=== PATIENT | female | born 1955 | race African-American/Black ===

== ENCOUNTER 2017-03-27 07:29 | Inpatient (IN) | payer MEDICARE, OTHER, SELFPAY ==
[2017-03-21 10:15] LABS: BASOPHILS 0.1 %; BASOPHILS ABSOLUTE 0.01 10/3/uL (0.0-0.16); EOSINOPHILS 0.8 %; EOSINOPHILS ABSOLUTE 0.07 10/3/uL (0.0-0.53); HEMATOCRIT 41.4 % (36.0-48.0); HEMOGLOBIN 13.8 g/dL (12.0-16.0); IMMATURE GRANULOCYTES 0.1 %; IMMATURE GRANULOCYTES ABSOLUTE 0.01 10/3/uL (0.0-0.11); LYMPHOCYTES 23.4 %; MEAN CORPUS HGB CONC 33.3 g/dL (32.0-36.0); MEAN CORPUSCULAR HEMOGLOB 30.7 pg (26.0-34.0); MEAN CORPUSCULAR VOLUME 92.2 fL (80-100); MONOCYTES 4.9 %; MONOCYTES ABSOLUTE 0.44 10/3/uL (0.21-1.20); NEUTROPHILS 70.7 %; NEUTROPHILS ABSOLUTE 6.34 10/3/uL (2.02-8.40); PLATELET COUNT 256 10/3/uL (150-400); RBC DISTRIBUTION WIDTH 13.4 % (12.0-16.0); RED CELL COUNT 4.49 10/6/uL (4.0-5.6)
[2017-03-21 10:16] LABS: MANUAL DIFF NO %
[2017-03-21 10:22] LABS: INTERNATIONAL NORMAL RATI 1.1 UNITS (-)
[2017-03-21 10:31] LABS: A/G RATIO 1.1 (0.7-1.9); ALBUMIN 3.7 G/DL (3.5-5.0); CALCIUM, SERUM 9.3 MG/DL (8.5-10.4); CHLORIDE, SERUM 108 MMOL/L (96-112); CO2 (CARBON DIOXIDE) 30 MMOL/L (24-34); CREATININE 1.88 MG/DL (0.55-1.02); GFR AFRICAN AMERICAN 33 ML/MIN (>=60); GFR NON AFRICAN AMERICAN 28 ML/MIN (>=60); GLOBULIN 3.5 G/DL (2.5-4.1); POTASSIUM, SERUM 4.3 MMOL/L (3.5-5.3); SGOT(AST) 14 U/L (5-40); SGPT(ALT) 25 U/L (5-65); SODIUM, SERUM 144 MMOL/L (135-148); TOTAL BILIRUBIN 0.8 MG/DL (0-1.2); TOTAL PROTEIN 7.2 G/DL (6.0-8.5)
[2017-03-21 10:32] LABS: ALKALINE PHOSPHATASE 164 U/L (45-117); BUN (BLOOD UREA NITROGEN) 19 MG/DL (6-23); GLUCOSE, SERUM 106 MG/DL (60-99)
[2017-03-21 13:14] LABS: ASCORBIC ACID (UR NOT ORDER) NEG (NEG); BILIRUBIN, URINE NEGATIVE (NEG); KETONE, URINE NEGATIVE (NEG); LEUKOCYTE ESTERASE(NOT OR NEG (NEG); WBC (NOT ORDERED) (RFLEX) 1 (0-5)
--- NOTE | ~2017-03-27 | OP ---
Record Of Operation [facility] [address] [place]. [address] NAME: ANG JERONIMO : 55 STATUS : ADM IN [facility]#: [id number] AGE: 61 ADM/REG DATE : 03/27/17 MR#: [id number] REPORT SERV DATE: 03/28/17 DICTATED BY: CORONA GRECO DATE: 03/28/17 REPORT STATUS : Draft TRANSCRIBED BY: MODPaula DATE: 03/28/17 DATE OF PROCEDURE: 03/27/2017 PREOPERATIVE DIAGNOSIS: Severe right knee degenerative joint disease. POSTOPERATIVE DIAGNOSIS: Severe right knee degenerative joint disease. OPERATION: Right posterior stabilized total knee replacement, cemented. SIDE: Right. SIZE: See chart. ANESTHESIA: See chart. ESTIMATED BLOOD LOSS: About 10 mL. TOURNIQUET TIME: Approximately 1 hour and 10 minutes. COMPLICATIONS: None. SPECIMENS: Articular surfaces. PROCEDURE: The patient was appropriately identified and marked. The operative side agreed with the consent form and it was checked by all members of the surgical team. The patient was taken to the operating room and anesthesia was induced per the anesthesiologist. The patient was carefully transferred to the operating table without incident. The patient received appropriate prophylactic antibiotics and a Hoffmann catheter was placed in the standard sterile technique. The patient was then carefully positioned, padded, prepped and draped in the normal sterile fashion. The operative leg had been appropriately identified and checked by all members of the operating team against the consent form and found to be the correct limb. The patient's lower extremity was then exsanguinated with an Dashawn wrap and a tourniquet was inflated to 350 mm/Hg. Sharp dissection was carried out through a straight midline longitudinal incision and electrocautery through the fat. Sharp quad splitting approach was carried out between about the medial 10 percent of the tendon and the lateral 90 percent of the tendon and down around the medial aspect of the patella and then 1 cm medial to the tibial tubercle. The patella was carefully everted and the posterior fat pad was excised and gentle MCL elevation was carried out off the proximal medial tibia subperiosteally. IM guide was placed in the distal femur after using the appropriate drill. The distal femoral cutting guide was held with 2 pins and the distal cut made. Meniscal fragments and the ACL and the PCL were excised with electrocautery, carefully staying anterior to the posterior fat pad. The proximal tibial alignment guide was set appropriately and the proximal tibial cut made. Spacer block verified full extension with excellent mediolateral balance. Sizing guide was used to place 2 drill holes in the distal femur and the four-in-one cutting block was then placed, impacted and checked Record Of Operation [facility] [id number] [place]. [address] NAME: ANG JERONIMO : 55 STATUS : ADM IN PAT#: [id number] AGE: 61 ADM/REG DATE : 03/27/17 MR#: [id number] REPORT SERV DATE: 03/28/17 DICTATED BY: CORONA GRECO DATE: 03/28/17 REPORT STATUS : Draft TRANSCRIBED BY: JUJU DATE: 03/28/17 to be sure it would not notch with an alicia wing and it was held with 2 pins. The anterior cut, posterior cut, anterior chamfer and posterior chamfer cuts were made. The pins were removed and the block was removed. A posterior release was carried out with a curved 3/4 inch osteotome staying right on the bone posteriorly. The box-cut guide was then placed, impacted and held with 2 pins and a reciprocating saw was used to cut out the box. With the trial components in place, there was excellent medial/lateral balance. The patella was then measured with a caliper, cut first with an oscillating saw and then reamed with a patella reamer. With the trial patella in place, there was excellent patellar tracking. Rotation was marked on the tibia and the tibia prepared with a drill and stamp chisel. All surfaces were then copiously irrigated with pulsatile lavage, carefully dried and then vacuum-mixed cement was pressurized with a cement gun in a doughy phase. The tibial component was placed, impacted and excess cement was removed. The cement was then pressurized in the femur and placed on the posterior runners of the femoral component, which was placed, impacted and excess cement removed and the knee was brought out into extension on a trial spacer. The cement was then pressurized in the patella. Patellar component was then placed, clamped and excess cement was removed. Once all cement was hardened, the knee was taken through range of motion. Further extruded cement was removed with a small osteotome. Then based on the trial inserts, we decided on the actual insert, which was placed in the standard fashion and held with a locking mechanism. The knee was then copiously irrigated and then closed in a layered fashion over a medium Hemovac drain superolaterally with interrupted #1 in the deep fascia, 2-0 subcutaneous and polly in the skin. The wounds were dressed sterilely and the tourniquet was deflated. The patient was then awakened and taken to the postanesthesia care unit without incident. All counts were correct at the end of the case. WTB/JUJU Anam Greco M.D. / [id number] CC: Anam Greco M.D.
--- NOTE | ~2017-03-27 | DS ---
Discharge Summary [facility] [id number] [place]. [address] NAME: ANG JERONIMO : 55 STATUS : DIS IN PAT#: [id number] AGE: 61 ADM/REG DATE : 03/27/17 MR#: [id number] REPORT SERV DATE: 04/18/17 DICTATED BY: CORONA GRECO DATE: 04/17/17 REPORT STATUS : Draft TRANSCRIBED BY: MODPaula DATE: 04/17/17 Data Collection from hospitalization DISCHARGE DIAGNOSES: 1. Severe right knee degenerative joint disease. 2. Diabetes. 3. Hypertension. 4. Depression. 5. Neuropathy. 6. Hypercholesterolemia. 7. Chronic kidney disease. 8. Hypothyroidism. 9. Osteoarthritis. CONSULTATIONS: 1. Nato Dill DO. 2. Vincenzo Burr MD. PROCEDURES PERFORMED: 1. Right posterior stabilized total knee replacement, cemented, 03/27/2017. 2. Carotid blood flow study on 03/28/2017. 3. CT scan of the brain without contrast on 03/28/2017. 4. MRI of the brain without contrast on 03/28/2017. 5. MRI of the brain without contrast on 04/01/2017. PATHOLOGY: Bone and joint, right knee, total knee - degenerative changes. Bone marrow - fatty without hematopoiesis, synovial hyperplasia with neovascularization (no crystals). MEDICATIONS: Aspirin 81 mg daily, Lipitor 80 mg at bedtime, Cardizem CD 300 mg every morning, Colace 100 mg twice a day, Pepcid 20 mg at bedtime, ferrous sulfate 300 mg with breakfast and supper, Neurontin 300 mg three times a day, Lantus 33 units subcutaneously every morning as instructed and 30 units subcutaneously at bedtime, levothyroxine 50 mcg daily, Theragran tablets one tablet with breakfast, Coumadin as instructed, Geodon 60 mg twice a day, Levemir 33 units subcutaneously daily and 30 units subcutaneously at bedtime, Tylenol 650 mg every four hours as needed, Mylanta 30 mL as needed, Dulcolax 15 mg as needed, milk of magnesia 30 mL as needed, Zofran 4 mg every four hours as needed, Percocet 5/325 one to two tablets every four hours as needed, MiraLAX powder one packet twice a day as needed, Tradjenta 5 mg before breakfast, Cozaar 100 mg every morning, Klor-Con 20 mEq twice a day, and Lasix 40 mg twice a day. CONDITION AT DISCHARGE: Stable. DISPOSITION: The patient was discharged to [facility] on an 1800-calorie diabetic diet with activities as instructed. HOSPITAL COURSE: This is a 61-year-old female who had severe right knee degenerative joint disease. Treatment options were discussed and it was elected to proceed with surgical intervention. She was admitted to the hospital at this time for further evaluation and Discharge Summary [address] [address] NAME: ANG JERONIMO : 55 STATUS : DIS IN PAT#: [id number] AGE: 61 ADM/REG DATE : 03/27/17 MR#: [id number] REPORT SERV DATE: 04/18/17 DICTATED BY: CORONA GRECO DATE: 04/17/17 REPORT STATUS : Draft TRANSCRIBED BY: JUJU DATE: 04/17/17 treatment. Upon admission, she was taken to the operating room where she underwent the above-mentioned procedure. She tolerated this well, and there were no complications. On postop day #1, she developed a new onset of left hemiparesis. She definitely had some left-sided weakness and left facial droop. She was able to talk, but stuttered and repeated herself. Stroke code was initiated. A carotid blood flow study was performed as well as a CT scan of the brain without contrast and an MRI of the brain without contrast. Losartan was held. She was evaluated by Occupational Therapy. She was seen by Dr. Vincenzo Burr regarding possible acute stroke. CT scan of the brain had demonstrated no clear abnormality. After the CT scan, the patient was placed in the CCU. Prior to tPA administration, the patient became more obtunded and had more difficulty following commands with more dysarthria. There was persistent left hemipareses during the evaluation and the patient's left arm seemed to be mildly worse compared to prior to CCU arrival. The patient denies any previous stroke in the past. A CTA had not been obtained secondary to the patient's creatinine of 2.1. We were going to check a fasting lipid panel and hemoglobin A1c. Lipitor was going to be given at bedtime. Coumadin was held. IV labetalol was going to be given as needed for systolic blood pressure greater than 185 mmHg. The patient was also seen by Dr. Nato Dill. The patient had received tPA and had been transported to the ICU. She had developed some respiratory distress and was placed on 4 liters/minute of oxygen. The patient denies any underlying history of lung disease. She is not on any inhalers or oxygen. She is a lifelong nonsmoker. After the tPA was given, she did have some bleeding into her right knee area from where the surgery was done. Compression was being provided. There was a small amount of bright red blood in her sputum. She felt like her breathing was doing well now. She did not have any chest pain or wheezing. She was going to be monitored in the ICU. TSH was going to be checked. Toradol was stopped. Potassium was also discontinued as well as Lasix and alogliptin. Glucose checks would be performed. She had already been started on Levemir subcu, sliding scale insulin level 3 was also started. We were going to check hemoglobin A1c and check her chest x-ray. Echocardiogram was performed. On 03/29/2017, she reported that her symptoms were improving. Her T-max was 98.5. Aspirin had been started. Coumadin was going to be resumed. Losartan was stopped as well as IV fluids. She was evaluated by Physical Therapy. She was transfused one unit of packed red blood cells. Speech-Language pathology performed a bedside swallow study. There were no overt signs or symptoms of aspiration. Aspiration precautions were in place. On 03/30/2017, she was up sitting in a bedside chair. Her left-sided weakness had improved. She was doing well. ARNEL hose were in place. Sliding scale insulin level 3 was continued as well as Levemir. We encouraged oral fluids. Lipitor and Synthroid were continued. She was transferred to telemetry. INR level was 1.2. Her left hemiparesis resolved. She continued to do well. Creatinine level was 1.86. On 04/01/2017, the left hemithorax had almost completely resolved. There was still a little weakness in the left arm and leg. She was transfused one unit of packed red blood cells. Blood sugars were stable. Creatinine was 1.57. Her carotid ultrasound had been normal. Her echocardiogram had shown left ventricular ejection fraction of 70%. She was felt to have had an acute stroke. Discharge planning was performed. She continued to progress. MRI of the brain without contrast was performed. There were no acute changes seen. On 04/03/2017, she was up sitting in a chair. She was alert and cooperative. She had normal distal pulses. Creatinine level was 1.58. Discharge Summary [address] [address] NAME: ANG JERONIMO : 55 STATUS : DIS IN PAT#: [id number] AGE: 61 ADM/REG DATE : 03/27/17 MR#: [id number] REPORT SERV DATE: 04/18/17 DICTATED BY: CORONA GRECO DATE: 04/17/17 REPORT STATUS : Draft TRANSCRIBED BY: MODL DATE: 04/17/17 Discharge instructions were given. Due to her improved and stable condition, she was discharged to [facility] with the above-stated instructions. Information collected by: Tonia Worthy I submit the above information as my discharge summary. TG/JUJU Anam Greco M.D. / [id number] CC: Riya Millard M.D. [facility]
--- NOTE | ~2017-03-27 | CN ---
Consultation Report [facility] [address] [place]. [address] NAME: ANG JERONIMO : 55 STATUS : ADM IN [facility]#: [id number] AGE: 61 ADM/REG DATE : 03/27/17 MR#: [id number] REPORT SERV DATE: 03/28/17 DICTATED BY: NATO DILL DATE: 03/28/17 REPORT STATUS : Draft TRANSCRIBED BY: MODL DATE: 03/28/17 CONSULT DATE OF CONSULTATION: A 61-year-old female, admitted to the hospital by Dr. Riley with Orthopedics. He performed a right total knee replacement on 03/27/2017. The patient had minimal blood loss from surgery. Postoperative day #1, she started having some left-sided weakness that included a left arm and leg as well as some left facial weakness. Noncontrast CT scan of the head did not show any blood. She was evaluated by Neurology and was found to have an acute CVA. The patient was given tPA and transported to the ICU. The patient did get into some respiratory distress and had to be placed on 4 L/minute of oxygen and we were consulted. The patient denies any history of underlying lung disease. She is not on any inhalers or oxygen. She is a lifelong nonsmoker. After the tPA was given, she did have some bleeding into her right knee area from where the surgery was done. Orthopedics was notified and they are just doing compression at this point. She has a little bit of scant bright red blood in her sputum. Otherwise she states her breathing is doing well now. She does not have any chest pain or wheezing. No fever. REVIEW OF SYSTEMS: No headache, seizure, or syncope. She states that some of her left arm and leg strength is starting to come back some. She does have significant arthritis. PAST MEDICAL HISTORY: Osteoarthritis, hypertension, hypothyroidism, and insulin-dependent diabetes. SURGICAL HISTORY: Hernia repair, hysterectomy, left total knee arthroplasty, April of 2016, and right knee arthroscopy. FAMILY HISTORY: Brother diabetes and hypertension, sister diabetes, father heart disease and hypertension. SOCIAL HISTORY: . Does have children. Never smoker. No alcohol. ALLERGIES: HYDROCODONE. HOME MEDICATIONS: Reviewed. PHYSICAL EXAMINATION: VITAL SIGNS: Per nursing flow sheet. GENERAL: No acute distress. Alert. HEENT: Normocephalic and atraumatic. Pupils are equal, round, and reactive to light. NECK: Trachea midline. HEART: Regular rate and rhythm. No murmurs. LUNGS: Clear to auscultation bilaterally. No wheezes, rales, or rubs. GI: Soft, nontender, nondistended. Obese abdomen. MUSCULOSKELETAL: Right knee is Consultation Report [address] [place]. [address] NAME: ANG JERONIMO : 55 STATUS : ADM IN [facility]#: [id number] AGE: 61 ADM/REG DATE : 03/27/17 MR#: [id number] REPORT SERV DATE: 03/28/17 DICTATED BY: NATO DILL DATE: 03/28/17 REPORT STATUS : Draft TRANSCRIBED BY: JUJU DATE: 03/28/17 wrapped, has a postsurgical dressing. There is some blood oozing through the gauze. EXTREMITIES: No obvious cyanosis or clubbing. NEUROLOGIC: GCS 15. LABORATORY AND DIAGNOSTIC DATA: Labs and radiology studies reviewed. ASSESSMENT AND PLAN: 1. Respiratory distress-resolving. 2. Acute CVA-left hemiparesis. 3. Insulin-dependent diabetes with hyperglycemia. 4. Status post postop day #1 right total knee replacement. 5. Acute blood loss anemia. 6. Scant hemoptysis. 7. Acute on chronic kidney disease. PLAN: ICU monitoring. Post tPA for stroke. Neurology is already following the patient with their orders in place. TSH is pending given her history of hypothyroidism. Neurology stopped Toradol given her kidney history. Also stopped her potassium, Lasix, and alogliptin. We will also get glucose checks. She is already on her Levemir subcu and we will add a level 3 sliding scale. Check A1c. Check chest x-ray. CEP/MODL Nato Dill DO / [id number] CC: Anam Riley M.D.
--- NOTE | ~2017-03-27 | CN ---
Consultation Report [facility] [address] [place]. [address] NAME: ANG JERONIMO : 55 STATUS : ADM IN PAT#: [id number] AGE: 61 ADM/REG DATE : 03/27/17 MR#: [id number] REPORT SERV DATE: 03/28/17 DICTATED BY: DATE: REPORT STATUS : Draft TRANSCRIBED BY: MODL DATE: 03/28/17 NEUROLOGY CONSULTATION DATE OF CONSULTATION: 03/28/2017 REASON FOR CONSULT: Possible acute stroke. HISTORY OF PRESENT ILLNESS: This is a 61-year-old female who presented to [facility] on 03/27/2017, for right knee surgery. The patient, after surgery, was doing well until 08:45 when the patient was trying to move left the left arm up and was noted to have left upper extremity weakness. The patient was not evaluated by the nurse practitioner for orthopedic service and was confirmed to have left hemiparesis and was called a stroke code. CT scan of the brain otherwise demonstrated no clear abnormality. After CT scan upon arrival to CCU prior to tPA administration, the patient was noted to have become more obtunded and have more difficulty following commands with more dysarthria. The patient was noted to have persistent left hemiparesis during the evaluation with the patient's left arm appeared to be mildly worse compared to prior to CCU arrival. The patient's initial NIH Stroke Scale was 8. The patient denies previous stroke in the past. The patient, prior to the hospitalization, was not noted to have any recent illness, fever, chill, nausea, or vomiting. TPA was authorized by orthopedic nurse practitioner at the time of evaluation. PAST MEDICAL HISTORY: The patient's past medical history consists of chronic kidney disease as well as history of hypertension and diabetes. SOCIAL HISTORY: Denies tobacco, alcohol, or recreational drug usage. FAMILY HISTORY: Significant for hypertension. REVIEW OF SYSTEMS: At the time of evaluation, review of systems otherwise negative except for those mentioned in the HPI. The patient was noted to have hospital medication, the patient received a dose of Coumadin on 03/27/2017; has not received today's dose of Coumadin. The patient's hospital medications otherwise consist of Cardizem; Colace; Cozaar; ferrous sulfate; Geodon; Lasix; Levemir; Neurontin; NovoLog; Pepcid; potassium; Synthroid; multivitamin; Toradol as well as alogliptin. The patient has also received morphine 2 mg on 03/27/2017, at 1642 hours as well as Percocet on 03/28/2017 at 7 a.m. PHYSICAL EXAMINATION: VITAL SIGNS: At the time of evaluation, the patient was noted to have vital signs with T- max of 98.7, heart rate of 66 to 101, respirations of 13 to 25, and blood pressure of 126 to 162 over 55 to 78. GENERAL: The patient is well developed, well nourished, in no acute distress. Consultation Report [place] [id number] [facility] [place]. [address] NAME: ANG JERONIMO : 55 STATUS : ADM IN [facility]#: [id number] AGE: 61 ADM/REG DATE : 03/27/17 MR#: [id number] REPORT SERV DATE: 03/28/17 DICTATED BY: DATE: REPORT STATUS : Draft TRANSCRIBED BY: MODL DATE: 03/28/17 CARDIOVASCULAR EXAMINATION: Regular rate and rhythm. No carotid bruits were otherwise auscultated. PULMONARY: Examination was clear to auscultation bilaterally. NEUROLOGICAL EXAMINATION: Generally, the patient is alert and oriented to person, place, possible year as well as month. The patient was noted to have dysarthria at the time of evaluation, is able to follow most of the simple and 2-step commands at the time of evaluation. The patient, later, became more obtunded but still arousable. Otherwise, the patient was noted to have mild aphasia at the time of evaluation as well. Cranial nerves 2 through 12. Pupils equal, round, and reactive to light. Initially was noted to have intact horizontal eye movement and subsequently was noted to have difficulties to move the eye towards the left. Intact [id number] response bilaterally. Decreased nasolabial fold as well as right lower facial weakness. Midline tongue. Normal palatal movement. Reports decreased sensation in the left cranial nerve V1, V2, and V3 distribution. The patient was noted to have some decreased hearing in bilateral ears with the patient noted to have initial 5/5 right upper extremity strength. Right lower extremity strength was difficult to evaluate secondary to recent right knee surgery as well as pain with the patient reports symmetrical sensation in bilateral lower extremity. The patient was noted to have 1/5 trace movement in the left lower extremity as well as left upper extremity forearm able to move against gravity. Otherwise, reports decreased sensation in the left upper extremity. At the time of evaluation, no clear ataxia was noted. The patient does demonstrate 2+ reflexes throughout. Gait was not evaluated secondary to weakness as well as recent knee surgery. LABORATORY STUDIES: At the time of evaluation demonstrated hemoglobin of 10.1, hematocrit of 30.8, and the patient was noted to have INR of 1.2. Sodium of 139, potassium 4.6, chloride 104, bicarb 28, BUN of 20, creatinine of 2.10, glucose of 202, and calcium of 7.7. CT scan of the brain demonstrated no acute process. CTA was not obtained secondary to the patient's creatinine of 2.1. IMPRESSION: Left hemiparesis. Time of onset was 08:45 noted with more obtundation upon arrival to the CCU prior to tPA administration in addition to the patient's persistent left hemiparesis and dysarthria. Initial NIH stroke scale was 8. TPA was administered at 0955 hours. We will check MRI of the brain without contrast for evaluation. We will obtain stroke workup as well as laboratory study. RECOMMENDATIONS: 1. Status post tPA at 0955 hours. 2. MRI of the brain without contrast. 3. Echocardiogram. 4. Carotid Doppler study. 5. Fasting lipid panel and hemoglobin A1c. 6. Lipitor 80 mg p.o. at bedtime. 7. Hold Coumadin. 8. Labetalol 10 mg IV q.4 to 6 hours as needed p.r.n. for systolic blood pressure greater than 185 mmHg. 9. PT/OT speech therapy to evaluate and treat. Consultation Report [place] [address] [place]. [address] NAME: ANG JERONIMO : 55 STATUS : ADM IN [facility]#: [id number] AGE: 61 ADM/REG DATE : 03/27/17 MR#: [id number] REPORT SERV DATE: 03/28/17 DICTATED BY: DATE: REPORT STATUS : Draft TRANSCRIBED BY: JUJU DATE: 03/28/17 [facility]/JUJU Vincenzo Burr MD / [id number] CC: Anam Riley M.D.
[~2017-03-27 07:29] MED LIST: AT25 PO; C5; CARDCD300 PO; COZAAR100 MG PO; ESTRACE1 MG PO; GEODON60 MG PO; HUMALOGPEN SC; KLOR-CON20 MEQ PO; L40 PO; LANTUSCART SC; LEVOTHYROXIN50 MCG PO; NEUR300 PO; PCET PO; TRADJENTA5 MG PO
[2017-03-28 04:55] LABS: HEMATOCRIT 30.8 % (36.0-48.0); HEMOGLOBIN 10.1 g/dL (12.0-16.0); INTERNATIONAL NORMAL RATI 1.2 UNITS (-); PROTIME (NOT ORD) 14.9 SEC (12.0-14.5)
[2017-03-28 05:04] LABS: BUN (BLOOD UREA NITROGEN) 20 MG/DL (6-23); CALCIUM, SERUM 7.7 MG/DL (8.5-10.4); CHLORIDE, SERUM 104 MMOL/L (96-112); CO2 (CARBON DIOXIDE) 28 MMOL/L (24-34); GFR AFRICAN AMERICAN 29 ML/MIN (>=60); GFR NON AFRICAN AMERICAN 25 ML/MIN (>=60); GLUCOSE, SERUM 282 MG/DL (60-99); POTASSIUM, SERUM 4.6 MMOL/L (3.5-5.3); SODIUM, SERUM 139 MMOL/L (135-148)
[2017-03-28 11:53] LABS: HEMATOCRIT 29.1 % (36.0-48.0); HEMOGLOBIN 9.8 g/dL (12.0-16.0)
[2017-03-28 12:33] LABS: CHOL/HDL RATIO(NOT ORDER) 3.1 (0-5); FOLATE 7.9 NG/ML (>5.2); FREE T4 1.33 NG/DL (0.76-1.46); ULTRASENSITIVE TSH 0.65 MCIU/ML (0.358-3.740)
[2017-03-28 21:17] LABS: HEMATOCRIT 23.2 % (36.0-48.0); HEMOGLOBIN 7.8 g/dL (12.0-16.0)
[2017-03-28 21:41] LABS: GLYCOHEMOGLOBIN (HbA1c) 8.8 % (4.7-6.1)
[2017-03-29 05:18] LABS: INTERNATIONAL NORMAL RATI 1.3 UNITS (-); PROTIME (NOT ORD) 16.5 SEC (12.0-14.5)
[2017-03-29 05:23] LABS: HEMATOCRIT 20.1 % (36.0-48.0); HEMOGLOBIN 6.7 g/dL (12.0-16.0)
[2017-03-29 09:58] LABS: HEMATOCRIT 19.2 % (36.0-48.0); HEMOGLOBIN 6.5 g/dL (12.0-16.0)
[2017-03-29 10:09] LABS: CALCIUM, SERUM 7.5 MG/DL (8.5-10.4); CHLORIDE, SERUM 110 MMOL/L (96-112); CO2 (CARBON DIOXIDE) 25 MMOL/L (24-34); CREATININE 2.51 MG/DL (0.55-1.02); GFR AFRICAN AMERICAN 23 ML/MIN (>=60); GFR NON AFRICAN AMERICAN 20 ML/MIN (>=60); GLUCOSE, SERUM 229 MG/DL (60-99); POTASSIUM, SERUM 4.9 MMOL/L (3.5-5.3); SODIUM, SERUM 142 MMOL/L (135-148)
[2017-03-29 10:11] LABS: BUN (BLOOD UREA NITROGEN) 31 MG/DL (6-23)
[2017-03-29 11:51] LABS: BASOPHILS 0.1 %; BASOPHILS ABSOLUTE 0.01 10/3/uL (0.0-0.16); EOSINOPHILS 0 %; IMMATURE GRANULOCYTES 0.3 %; IMMATURE GRANULOCYTES ABSOLUTE 0.04 10/3/uL (0.0-0.11); LYMPHOCYTES 12.6 %; LYMPHOCYTES ABSOLUTE 1.85 10/3/uL (0.67-4.30); MANUAL DIFF NO %; MEAN CORPUS HGB CONC 32.7 g/dL (32.0-36.0); MEAN CORPUSCULAR HEMOGLOB 30.3 pg (26.0-34.0); MEAN CORPUSCULAR VOLUME 92.9 fL (80-100); MEAN PLATELET VOLUME 10.3 fL (9.2-13.0); MONOCYTES 12.8 %; MONOCYTES ABSOLUTE 1.88 10/3/uL (0.21-1.20); NEUTROPHILS 74.2 %; NEUTROPHILS ABSOLUTE 10.86 10/3/uL (2.02-8.40); PLATELET COUNT 194 10/3/uL (150-400); RED CELL COUNT 2.11 10/6/uL (4.0-5.6); WHITE BLOOD CELLS 14.6 10/3/uL (4.5-10.5)
[2017-03-29 18:21] LABS: HEMATOCRIT 26.1 % (36.0-48.0); HEMOGLOBIN 8.7 g/dL (12.0-16.0)
[2017-03-30 04:10] LABS: HEMOGLOBIN 7.9 g/dL (12.0-16.0)
[2017-03-30 04:11] LABS: HEMATOCRIT 23.2 % (36.0-48.0)
[2017-03-30 04:12] LABS: INTERNATIONAL NORMAL RATI 1.2 UNITS (-)
[2017-03-31 04:27] LABS: BASOPHILS 0.2 %; BASOPHILS ABSOLUTE 0.02 10/3/uL (0.0-0.16); EOSINOPHILS 1.7 %; EOSINOPHILS ABSOLUTE 0.22 10/3/uL (0.0-0.53); HEMATOCRIT 22.1 % (36.0-48.0); HEMOGLOBIN 7.3 g/dL (12.0-16.0); IMMATURE GRANULOCYTES 0.7 %; IMMATURE GRANULOCYTES ABSOLUTE 0.09 10/3/uL (0.0-0.11); LYMPHOCYTES 26.2 %; MEAN CORPUSCULAR HEMOGLOB 31.3 pg (26.0-34.0); MEAN CORPUSCULAR VOLUME 94.8 fL (80-100); MEAN PLATELET VOLUME 9.4 fL (9.2-13.0); MONOCYTES 10.3 %; MONOCYTES ABSOLUTE 1.33 10/3/uL (0.21-1.20); NEUTROPHILS 60.9 %; PLATELET COUNT 210 10/3/uL (150-400); RBC DISTRIBUTION WIDTH 14.6 % (12.0-16.0); RED CELL COUNT 2.33 10/6/uL (4.0-5.6)
[2017-03-31 04:28] LABS: MANUAL DIFF NO %
[2017-03-31 04:32] LABS: INTERNATIONAL NORMAL RATI 1.3 UNITS (-); PROTIME (NOT ORD) 15.9 SEC (12.0-14.5)
[2017-03-31 04:44] LABS: BUN (BLOOD UREA NITROGEN) 29 MG/DL (6-23); CALCIUM, SERUM 8.1 MG/DL (8.5-10.4); CHLORIDE, SERUM 111 MMOL/L (96-112); CO2 (CARBON DIOXIDE) 27 MMOL/L (24-34); POTASSIUM, SERUM 4.4 MMOL/L (3.5-5.3); SODIUM, SERUM 143 MMOL/L (135-148)
[2017-03-31 04:45] LABS: CREATININE 1.86 MG/DL (0.55-1.02); GFR AFRICAN AMERICAN 33 ML/MIN (>=60); GFR NON AFRICAN AMERICAN 29 ML/MIN (>=60); GLUCOSE, SERUM 138 MG/DL (60-99)
[2017-04-01 06:31] LABS: BASOPHILS 0.2 %; BASOPHILS ABSOLUTE 0.02 10/3/uL (0.0-0.16); EOSINOPHILS 1.8 %; EOSINOPHILS ABSOLUTE 0.22 10/3/uL (0.0-0.53); HEMATOCRIT 21.1 % (36.0-48.0); IMMATURE GRANULOCYTES 0.9 %; IMMATURE GRANULOCYTES ABSOLUTE 0.11 10/3/uL (0.0-0.11); LYMPHOCYTES 23.5 %; LYMPHOCYTES ABSOLUTE 2.84 10/3/uL (0.67-4.30); MEAN CORPUS HGB CONC 33.2 g/dL (32.0-36.0); MEAN CORPUSCULAR HEMOGLOB 31.7 pg (26.0-34.0); MEAN CORPUSCULAR VOLUME 95.5 fL (80-100); MEAN PLATELET VOLUME 8.8 fL (9.2-13.0); MONOCYTES 11.5 %; MONOCYTES ABSOLUTE 1.39 10/3/uL (0.21-1.20); NEUTROPHILS 62.1 %; PLATELET COUNT 245 10/3/uL (150-400); RBC DISTRIBUTION WIDTH 14.6 % (12.0-16.0); RED CELL COUNT 2.21 10/6/uL (4.0-5.6); WHITE BLOOD CELLS 12.1 10/3/uL (4.5-10.5)
[2017-04-01 06:33] LABS: MANUAL DIFF NO %
[2017-04-01 06:36] LABS: INTERNATIONAL NORMAL RATI 1.5 UNITS (-)
[2017-04-01 06:38] LABS: PROTIME (NOT ORD) 18.4 SEC (12.0-14.5)
[2017-04-01 06:43] LABS: CALCIUM, SERUM 8.3 MG/DL (8.5-10.4); CHLORIDE, SERUM 111 MMOL/L (96-112); CO2 (CARBON DIOXIDE) 27 MMOL/L (24-34); CREATININE 1.57 MG/DL (0.55-1.02); GFR AFRICAN AMERICAN 41 ML/MIN (>=60); GFR NON AFRICAN AMERICAN 35 ML/MIN (>=60); GLUCOSE, SERUM 157 MG/DL (60-99); POTASSIUM, SERUM 4.4 MMOL/L (3.5-5.3); SODIUM, SERUM 143 MMOL/L (135-148)
[2017-04-01 06:47] LABS: BUN (BLOOD UREA NITROGEN) 24 MG/DL (6-23)
[2017-04-01 19:24] LABS: HEMATOCRIT 25.9 % (36.0-48.0); HEMOGLOBIN 8.5 g/dL (12.0-16.0)
[2017-04-02 04:43] LABS: BASOPHILS 0.1 %; BASOPHILS ABSOLUTE 0.02 10/3/uL (0.0-0.16); EOSINOPHILS 1.9 %; EOSINOPHILS ABSOLUTE 0.27 10/3/uL (0.0-0.53); HEMATOCRIT 27.5 % (36.0-48.0); IMMATURE GRANULOCYTES 1.1 %; IMMATURE GRANULOCYTES ABSOLUTE 0.16 10/3/uL (0.0-0.11); LYMPHOCYTES 17.9 %; LYMPHOCYTES ABSOLUTE 2.51 10/3/uL (0.67-4.30); MEAN CORPUS HGB CONC 32.7 g/dL (32.0-36.0); MEAN CORPUSCULAR VOLUME 94.8 fL (80-100); MEAN PLATELET VOLUME 8.6 fL (9.2-13.0); MONOCYTES 12.2 %; MONOCYTES ABSOLUTE 1.71 10/3/uL (0.21-1.20); NEUTROPHILS 66.8 %; NEUTROPHILS ABSOLUTE 9.36 10/3/uL (2.02-8.40); PLATELET COUNT 293 10/3/uL (150-400); RBC DISTRIBUTION WIDTH 15.2 % (12.0-16.0)
[2017-04-02 04:44] LABS: MANUAL DIFF NO %
[2017-04-02 04:46] LABS: INTERNATIONAL NORMAL RATI 1.9 UNITS (-)
[2017-04-02 04:47] LABS: PROTIME (NOT ORD) 21.3 SEC (12.0-14.5)
[2017-04-02 04:53] LABS: CHLORIDE, SERUM 111 MMOL/L (96-112); CO2 (CARBON DIOXIDE) 31 MMOL/L (24-34); CREATININE 1.55 MG/DL (0.55-1.02); GFR AFRICAN AMERICAN 41 ML/MIN (>=60); GFR NON AFRICAN AMERICAN 36 ML/MIN (>=60); POTASSIUM, SERUM 4.4 MMOL/L (3.5-5.3); SODIUM, SERUM 146 MMOL/L (135-148)
[2017-04-02 04:56] LABS: BUN (BLOOD UREA NITROGEN) 20 MG/DL (6-23); CALCIUM, SERUM 9.4 MG/DL (8.5-10.4); GLUCOSE, SERUM 119 MG/DL (60-99)
[2017-04-03 06:13] LABS: BASOPHILS 0.1 %; BASOPHILS ABSOLUTE 0.02 10/3/uL (0.0-0.16); EOSINOPHILS 2.2 %; EOSINOPHILS ABSOLUTE 0.31 10/3/uL (0.0-0.53); HEMATOCRIT 25.6 % (36.0-48.0); HEMOGLOBIN 8.2 g/dL (12.0-16.0); IMMATURE GRANULOCYTES 0.9 %; IMMATURE GRANULOCYTES ABSOLUTE 0.12 10/3/uL (0.0-0.11); LYMPHOCYTES 18.5 %; MANUAL DIFF NO %; MEAN CORPUSCULAR HEMOGLOB 30.6 pg (26.0-34.0); MEAN CORPUSCULAR VOLUME 95.5 fL (80-100); MONOCYTES 12.4 %; MONOCYTES ABSOLUTE 1.74 10/3/uL (0.21-1.20); NEUTROPHILS 65.9 %; NEUTROPHILS ABSOLUTE 9.25 10/3/uL (2.02-8.40); PLATELET COUNT 341 10/3/uL (150-400); RBC DISTRIBUTION WIDTH 15.1 % (12.0-16.0); RED CELL COUNT 2.68 10/6/uL (4.0-5.6)
[2017-04-03 06:14] LABS: INTERNATIONAL NORMAL RATI 1.9 UNITS (-); PROTIME (NOT ORD) 21.4 SEC (12.0-14.5)
[2017-04-03 06:26] LABS: BUN (BLOOD UREA NITROGEN) 20 MG/DL (6-23); CALCIUM, SERUM 8.8 MG/DL (8.5-10.4); CHLORIDE, SERUM 110 MMOL/L (96-112); CO2 (CARBON DIOXIDE) 32 MMOL/L (24-34); CREATININE 1.58 MG/DL (0.55-1.02); GFR AFRICAN AMERICAN 41 ML/MIN (>=60); GFR NON AFRICAN AMERICAN 35 ML/MIN (>=60); GLUCOSE, SERUM 61 MG/DL (60-99); POTASSIUM, SERUM 4.4 MMOL/L (3.5-5.3); SODIUM, SERUM 146 MMOL/L (135-148)
== END 2017-04-03 15:33 | DRG 469 ==
LOC: SDC/OF 07:29 → PACU 12:16 → 3SO 14:40 → CCU 03-28 09:44 → 1SO 03-31 10:00
PROVIDERS: Internal Medicine Critical Care Medicine; Internal Medicine Pulmonary Disease; Nurse Practitioner; Psychiatry & Neurology Neurology; Specialist
PROC: 0SRC0J9 Replacement of Right Knee Joint with Synthetic Substitute, Cemented, Open Approach (ICD-10-PCS; principal; 2017-03-27 09:00)
PROC: 3E03317 Introduction of Other Thrombolytic into Peripheral Vein, Percutaneous Approach (ICD-10-PCS; 2017-03-28)
PROC: 30233N1 Transfusion of Nonautologous Red Blood Cells into Peripheral Vein, Percutaneous Approach (ICD-10-PCS; 2017-03-29)
DX: M17.11 Unilateral primary osteoarthritis, right knee (principal); I63.9 Cerebral infarction, unspecified; N17.9 Acute kidney failure, unspecified; D62 Acute posthemorrhagic anemia; G81.94 Hemiplegia, unspecified affecting left nondominant side; E11.22 Type 2 diabetes mellitus with diabetic chronic kidney disease; N18.3 Chronic kidney disease, stage 3 (moderate); E11.65 Type 2 diabetes mellitus with hyperglycemia; R06.00 Dyspnea, unspecified; E78.00 Pure hypercholesterolemia, unspecified; E78.5 Hyperlipidemia, unspecified; E03.9 Hypothyroidism, unspecified; J98.4 Other disorders of lung; I12.9 Hypertensive chronic kidney disease with stage 1 through stage 4 chronic kidney disease, or unspecified chronic kidney disease; R47.1 Dysarthria and anarthria; R29.708 NIHSS score 8; R29.810 Facial weakness; G62.9 Polyneuropathy, unspecified; F31.9 Bipolar disorder, unspecified; Z79.4 Long term (current) use of insulin; Z79.899 Other long term (current) drug therapy; Z88.5 Allergy status to narcotic agent
CPT/HCPCS: 36415; 70450; 70551; 71010; 71020; 80048; 80053; 80061; 81001; 82140; 82330; 82607; 82746; 82962; 83036; 84439; 84443; 85014; 85018; 85025; 85610; 86850; 86900; 86901; 86920; 87641; 88305; 88311; 92523-GN; 92610-GN; 93005; 93880; 97110-GO; 97110-GP; 97116-GP; 97161-GP; 97166-GO; 97168-GO; 97530-GO; 97530-GP; 97535-GO; A9270-GY; C1776; C8929; G8978-CM-GP; G8979-CK-GP; G8987-CK-GO; G8987-CL-GO; G8988-CJ-GO; G8988-CK-GO; G8996-CI-GN; G8997-CI-GN; G8998-CI-GN; J0690; J1885; J2250; J2270; J2405; J2710; J2795; J2997; J3010; J3411; P9016; Q9957